=== PATIENT | female | born 1995 | race Hispanic/Latino ===

== ENCOUNTER 2019-12-24 00:01 | Emergency (ER) | payer OTHER ==
[2019-12-24] MEDS ORDERED: HYDROCODONE/ACETAMINOPHEN 10/325 MG TAB ONE (00:15)
[2019-12-24] MEDS ORDERED: ONDANSETRON ODT 4 MG TAB ONE (00:15)
[2019-12-24] MEDS ORDERED: MORPHINE SULFATE 4 MG/1ML SYG ONE (01:04)
[2019-12-24] MEDS ORDERED: MORPHINE SULFATE 2 MG/ML 1ML SYG ONE (01:04)
== END 2019-12-24 03:18 | disposition home or self-care (01) ==
LOC: EDH 00:01
DX: S70.02XA Contusion of left hip, initial encounter (principal); S89.92XA Unspecified injury of left lower leg, initial encounter; M25.562 Pain in left knee; F41.9 Anxiety disorder, unspecified; F31.9 Bipolar disorder, unspecified; F43.10 Post-traumatic stress disorder, unspecified; Z88.8 Allergy status to other drugs, medicaments and biological substances; W18.39XA Other fall on same level, initial encounter; Y93.89 Activity, other specified; Y92.89 Other specified places as the place of occurrence of the external cause; Y99.8 Other external cause status
CPT/HCPCS: 70450; 73552; 73562; 81025; 96372; 99285; J2270

== ENCOUNTER 2019-12-25 19:01 | Emergency (ER) | payer OTHER ==
[2019-12-25] MEDS ORDERED: ACETAMINOPHEN EXTRA STRENGTH 500 MG TABLET ONE (19:48)
[2019-12-25] MEDS ORDERED: KETOROLAC TROMETHAMINE 30MG/ML ONE (20:42)
== END 2019-12-25 21:17 | disposition home or self-care (01) ==
LOC: EDH 19:01
DX: S82.145A Nondisplaced bicondylar fracture of left tibia, initial encounter for closed fracture (principal); F41.9 Anxiety disorder, unspecified; F32.9 Major depressive disorder, single episode, unspecified; F43.10 Post-traumatic stress disorder, unspecified; Z88.8 Allergy status to other drugs, medicaments and biological substances; W18.39XA Other fall on same level, initial encounter; Y93.01 Activity, walking, marching and hiking; Y92.89 Other specified places as the place of occurrence of the external cause; Y99.8 Other external cause status
CPT/HCPCS: 29505; 73700; J1885

== ENCOUNTER 2020-01-23 12:50 | Emergency (ER) | payer SELFPAY ==
[2020-01-23] MEDS ORDERED: ACETAMINOPHEN EXTRA STRENGTH 500 MG TABLET ONE (14:20)
== END 2020-01-23 16:52 | disposition home or self-care (01) ==
LOC: EDH 12:50
DX: S82.142D Displaced bicondylar fracture of left tibia, subsequent encounter for closed fracture with routine healing (principal); F41.9 Anxiety disorder, unspecified; F32.9 Major depressive disorder, single episode, unspecified; Z88.1 Allergy status to other antibiotic agents; F43.10 Post-traumatic stress disorder, unspecified; Z90.49 Acquired absence of other specified parts of digestive tract; Z72.0 Tobacco use; W18.39XD Other fall on same level, subsequent encounter
CPT/HCPCS: 73700; 81025

== ENCOUNTER 2022-03-02 15:03 | Emergency (ER) | payer MEDICAID ==
[~2022-03-02] VITALS: Ht 157.5 cm; Wt 99.8 kg
[2022-03-02 16:06] LABS: BASOPHILS % (AUTO) 0.2 % (0.0-5.0); EOSINOPHILS % (AUTO) 0.3 % (0.0-8.0); HEMATOCRIT 38.8 % (36-48); LYMPHOCYTES % (AUTO) 17.8 % (21.0-51.0); MEAN CORPUSCULAR HGB CONC 33.5 g/dL (32.0-36.0); MEAN CORPUSCULAR VOLUME 98.5 fL (79-99); MONOCYTES % (AUTO) 4.8 % (3.0-13.0); NEUTROPHILS % (AUTO) 76.5 % (40.0-77.0); PLATELET COUNT (AUTO) 226 K/uL (130-400); RED BLOOD CELL COUNT(AUTO) 3.94 MIL/uL (4.00-5.50); RED CELL DISTRIBUTION WIDTH 12.4 % (11.0-15.5); WHITE BLOOD COUNT (AUTO) 12.5 K/uL (4.8-10.8)
[2022-03-02 16:10] LABS: APPEARANCE,URINE CLEAR (CLEAR); BILIRUBIN,URINE NEGATIVE (NEGATIVE); COLOR,URINE LIGHT-YELLOW (YELLOW); GLUCOSE, URINE (UA) NEGATIVE (NEGATIVE); KETONES,URINE NEGATIVE (NEGATIVE); LEUKOCYTE ESTERASE ,URINE 500 Leu/uL (NEGATIVE); NITRATE,URINE NEGATIVE (NEGATIVE); OCCULT BLOOD,URINE NEGATIVE (NEGATIVE); PH,URINE 6.5 (5.0-8.0); PROTEIN,URINE NEGATIVE (NEGATIVE); UROBILINOGEN,URINE 0.2 mg/dL (0.2-1.0)
[2022-03-02 16:12] LABS: HCG,QUALITATIVE URINE NEGATIVE (NEGATIVE)
[2022-03-02 16:18] LABS: BACTERIA,URINE RARE /HPF (None Seen); MUCUS,URINE RARE LPF (None Seen); RBC,URINE 0-1 /HPF (0-1); SQUAMOUS EPITHELIAL CELL,UR FEW /HPF (0-2)
[2022-03-02 16:20] LABS: CREATININE 0.7 mg/dL (0.5-1.5); POTASSIUM 3.5 mmol/L (3.5-5.1)
[2022-03-02 16:24] LABS: ALBUMIN 3.3 g/dL (3.5-5.0); TOTAL PROTEIN, SERUM 7.2 g/dL (6.0-8.3)
[2022-03-02] MEDS ORDERED: SOLU-MEDROL 125MG VIAL IVP ONE (16:30)
[2022-03-02] MEDS ORDERED: METH4TAB3 PO (16:48)
[2022-03-02] MEDS ORDERED: SULF1TAB42 PO (16:48)
[2022-03-02] MEDS ORDERED: SULFAMETHOX-TMP DS 800/160 TAB PO SCH (17:00)
[2022-03-02] MEDS ORDERED: LACTATED RINGERS 1000ML IV SCH (17:30)
[2022-03-02 17:35] LABS: AMPHET/METH SCREEN,URINE NEGATIVE (NEGATIVE); BARBITURATE SCREEN, URINE NEGATIVE (NEGATIVE); BENZODIAZEPINES SCREEN,URINE NEGATIVE (NEGATIVE); CANNABINOID SCREEN,URINE POSITIVE (NEGATIVE); COCAINE SCREEN,URINE NEGATIVE (NEGATIVE); OPIATE SCREEN,URINE NEGATIVE (NEGATIVE); PHENCYCLIDINE SCREEN,URINE NEGATIVE (NEGATIVE)
[2022-03-02 18:42] VITALS: BP 116/81
== END 2022-03-02 18:53 | disposition home or self-care (01) ==
LOC: EDH 15:03
DX: S39.012A Strain of muscle, fascia and tendon of lower back, initial encounter (principal); N39.0 Urinary tract infection, site not specified; F41.9 Anxiety disorder, unspecified; F32.9 Major depressive disorder, single episode, unspecified; Z90.49 Acquired absence of other specified parts of digestive tract; Z88.1 Allergy status to other antibiotic agents; Z79.52 Long term (current) use of systemic steroids; Z79.899 Other long term (current) drug therapy; X58.XXXA Exposure to other specified factors, initial encounter; Y93.89 Activity, other specified; Y92.89 Other specified places as the place of occurrence of the external cause; Y99.8 Other external cause status
CPT/HCPCS: 99285; 96374; 80053; 80305; 85025; 87077; 87088; 87186; 81025; 36415; 93005; 81001; J2930

== ENCOUNTER 2022-04-14 21:44 | Emergency (ER) | payer MEDICAID ==
[~2022-04-14] VITALS: Ht 157.5 cm; Wt 104.8 kg
[~2022-04-14 21:44] MED LIST: IBUP-2077 PO; LEVO-70 PO
[2022-04-14 22:48] VITALS: BP 120/48
[2022-04-14] MEDS ORDERED: MUPI22OI2 TP (23:46)
[2022-04-14] MEDS ORDERED: IBUP-2070 PO (23:46)
[2022-04-14] MEDS ORDERED: SULF1TAB42 PO (23:46)
[2022-04-14] MEDS ORDERED: AMOX1TAB16 PO (23:46)
[2022-04-15] MEDS ORDERED: IBUPROFEN 600 MG TABLET PO ONE
== END 2022-04-15 00:11 | disposition home or self-care (01) ==
LOC: EDH 21:44
DX: T63.301A Toxic effect of unspecified spider venom, accidental (unintentional), initial encounter (principal); L03.119 Cellulitis of unspecified part of limb; J45.909 Unspecified asthma, uncomplicated; Z90.49 Acquired absence of other specified parts of digestive tract; Z79.1 Long term (current) use of non-steroidal anti-inflammatories (NSAID); Z88.1 Allergy status to other antibiotic agents; Y92.89 Other specified places as the place of occurrence of the external cause
CPT/HCPCS: 99282